=== PATIENT | female | born 1955 | race Caucasian/White ===

== ENCOUNTER 2020-02-15 08:43 | Emergency (ER) | payer MEDICAID ==
[~2020-02-15] VITALS: Ht 170.2 cm; Wt 114.3 kg
[2020-02-15 08:46] VITALS: BP 149/120
--- NOTE | 2020-02-15 08:55 | NUR ---
DR. GARCIA AT [facility].
--- NOTE | 2020-02-15 09:01 | NUR ---
64 Y/F PRESENTS TO ED C C/O URGENCY, FREQUENCY, BURNING SENSATIONS OF URINATION X 3 DAYS. DENIES HEMATURIA, DYSURIA, OR FEVER. REPORT THIS IS THE FIRST TIME OF HAVING THE SX THIS YEAR. PMH: HTN, TUBAL LIGATION MEDS: LOSARTAN, CHLORTHALIDONE
--- NOTE | 2020-02-15 09:09 | NUR ---
PT AMBULATED TO BATHROOM, STEADY GAIT.
--- NOTE | 2020-02-15 09:21 | NUR ---
PT UNABLE TO PROVIDE URINE AT THIS TIME.
--- NOTE | 2020-02-15 09:23 | NUR ---
PT AMBULATED TO BATHROOM, STEADY GAIT.
--- NOTE | 2020-02-15 09:36 | NUR ---
Patient discharged with v/s stable. Written and verbal after care instructions given and explained. Patient alert, oriented and verbalized understanding of instructions. Ambulatory with steady gait. All questions addressed prior to discharge. ID band removed. Patient advised to follow up with PMD. Rx of BACTRIM AND PHENAZOPYRIDINE given. Patient educated on indication of medication including possible reaction and side effects. Opportunity to ask questions provided and answered.
== END 2020-02-15 09:36 | disposition home or self-care (01) ==
LOC: MED 08:43
DX: N39.0 Urinary tract infection, site not specified (principal); I10 Essential (primary) hypertension; Z98.890 Other specified postprocedural states
CPT/HCPCS: 81002; 99283

== ENCOUNTER 2021-12-18 17:57 | Emergency (ER) | payer OTHER, MEDICAID ==
[~2021-12-18] VITALS: Ht 170.2 cm; Wt 117.3 kg
[2021-12-18 18:05] VITALS: BP 126/82
--- NOTE | 2021-12-18 18:05 | NUR ---
PT AMB TO ER BED 9
[2021-12-18] MEDS ORDERED: KETOROLAC 30 MG/ML VIAL IVP ONE (18:15)
[2021-12-18 18:32] LABS: BASOPHILS # (AUTO) 0.1 K/uL (0.00-0.22); BASOPHILS % (AUTO) 0.7 % (0.0-2.0); EOSINOPHILS # (AUTO) 0.3 K/uL (0-0.4); EOSINOPHILS % (AUTO) 2.8 % (0.0-4.0); HEMATOCRIT 40.5 % (36-48); HEMOGLOBIN 13.9 g/dL (12.0-16.0); LYMPHOCYTES # (AUTO) 2.4 K/uL (2.5-16.5); LYMPHOCYTES % (AUTO) 26.4 % (20.5-51.1); MEAN CORPUSCULAR HEMOGLOBIN 31 pg (27-31); MEAN CORPUSCULAR HGB CONC 34 g/dL (33-37); MEAN CORPUSCULAR VOLUME 89.9 fL (80-94); MONOCYTES # (AUTO) 0.8 K/uL (0.8-1.0); NEUTROPHILS # (AUTO) 5.5 K/uL (1.8-7.7); NEUTROPHILS % (AUTO) 61.1 % (42.2-75.2); PLATELET COUNT (AUTO) 303 K/uL (140-450); RED CELL DISTRIBUTION WIDTH 13.2 % (11.6-13.7)
--- NOTE | 2021-12-18 18:32 | NUR ---
[employer]IO [employer]CH[employer]IC HELPER BEDSIDE
[2021-12-18 18:48] LABS: ALBUMIN 3.6 g/dL (3.4-5.0); ANION GAP 9.5 (8-16); CARBON DIOXIDE 31.6 mmol/L (21-32); CREATININE 0.8 mg/dL (0.6-1.3); POTASSIUM 3.1 mmol/L (3.5-5.1); TOTAL BILIRUBIN 0.3 mg/dL (0.0-1.0)
--- NOTE | 2021-12-18 19:01 | NUR ---
66/F PRESENTS TO ED WITH C/O 7/10 INTERMITTENT MID SHARP PAIN X1 WEEK. PATIENT REPORTS WHEN PAIN STARTED SHE WAS AT REST, NO ALLEVIATING FACTORS NOTED, DENIES TAKING MEDICATION FOR PAIN. PATIENT REPORTS EXPERIENCING SIMILAR SYMPTOMS IN THE PAST WHERE SHE WAS REFERRED TO A CHANGE COORDINATOR FOR A STRESS TEST BUT STATES HER RESULTS WERE WNL. PATIENT DENIES N/V/D, SOB, FEVERS OR RECENT COUGH.
--- NOTE | 2021-12-18 19:25 | NUR ---
Pt report given to ADELA MATA. Transfer of care at this time.
--- NOTE | 2021-12-18 19:31 | NUR ---
PT IS AWAKE AND ALERT, ON SENIOR TECHNICAL RECRUITER. PT DENIES CHEST PAIN AT THIS TIME. ALL NEEDS MET. BED LOCKED IN LOWEST POSITION, SIDE RAILS X2 FOR SAFETY.
[2021-12-18 21:30] VITALS: BP 125/63
--- NOTE | 2021-12-18 21:30 | NUR ---
Patient discharged with v/s stable. Written and verbal after care instructions given and explained. Patient verbalized understanding. Ambulatory with steady gait. All questions addressed prior to discharge. Advised to follow up with PMD.
== END 2021-12-18 21:30 | disposition home or self-care (01) ==
LOC: MED 17:57
DX: R07.9 Chest pain, unspecified (principal); Z98.51 Tubal ligation status
CPT/HCPCS: 36415; 71045; 80053; 83880; 84484; 85025; 93005; 96374; 99285; J1885; Q0092